=== PATIENT | male | born 1980 | race African-American/Black ===

== ENCOUNTER 2018-04-17 12:08 | Emergency (ER) | payer OTHER ==
[2018-04-17 12:37] VITALS: BP 123/67; PULSE 83; TEMP 98.2; BMI 33.5
--- NOTE | 2018-04-17 12:54 | PDOC ---
Attending Attestation - HPI HPI: 04/17/18 14:22 The patient is a 37 year old male who presents to the ED today with an injury to the left lower extremity. He reports that he was playing basketball with friends last Saturday and went to "leap for the ball" when he had sudden pain in his left posterior calf. He denies any audible pop, snap, or other feeling associated with the injury. He has been able to walk with some pain. The patient states he has been using acetaminophen and ibuprofen with some improvement of his pain. He has also tried applying ice and heat with mild relief. He denies numbness or tingling. - Physicial Exam PE: 04/17/18 14:23 GENERAL: Awake, alert, and fully oriented, in no acute distress HEAD: No signs of trauma EYES: PERRLA, EOMI, sclera anicteric, conjunctiva clear ENT: Auricles normal inspection, hearing grossly normal, nares patent, oropharynx clear without exudates. Moist mucosa NECK: Normal ROM, supple, no lymphadenopathy, JVD, or masses LUNGS: Breath sounds equal, clear to auscultation bilaterally. No wheezes, and no crackles HEART: Regular rate and rhythm, normal S1 and S2, no murmurs, rubs or gallops ABDOMEN: Soft, nontender, normoactive bowel sounds. No guarding, no rebound. No masses EXTREMITIES: (+) LLE is visibly edematous distal to L knee. Tender posteriorly. Calf tight but not firm. increased pain with L knee flexion. Normal range of motion,No clubbing or cyanosis. No cords, erythema. NEUROLOGICAL: Cranial nerves II through XII grossly intact. Normal speech, normal gait SKIN: Warm, Dry, normal turgor, no rashes or lesions noted. - Medical Decision Making 04/17/18 14:23 Documentation prepared by Therese Velazquez, acting as biomedical engineer for Malia Lucas MD <Therese Velazquez - Last Filed: 04/17/18 14:24> - Medical Decision Making 04/19/18 18:15 PT presents to the ED complaining of unilateral lower extremity pain and swelling. Concern for DVT. Duplex is negative for DVT. No signs of tendon rupture. Will treat with NSAIDS and discharge home. <Malia Lucas - Last Filed: 04/19/18 18:17>
[2018-04-17] MEDS ORDERED: IBUPROFEN 400 MG TABLET (FP) PO ONE ×2 (13:09→14:05)
--- NOTE | 2018-04-17 13:13 | PDOC ---
History of Present Illness - General Chief Complaint: Injury Stated Complaint: INJURY Time Seen by Provider: 04/17/18 12:54 - History of Present Illness Initial Comments: Megha Villanueva is a 37yo man who presents to the ED today with an injury to the left lower extremity. He reports that he was playing basketball with friends last Saturday and went to "leap for the ball" when he had sudden pain in his left posterior calf. He denies any pop, snap, or other feeling associated with the injury. He has been able to walk, though with pain, since the injury. Mr Villanueva was trying to care for his injury at home for the past week. He has been using pain medications such as acetaminophen and ibuprofen with some improvement. He has also tried applying ice and heat. He does note that the pain lessens somewhat when the ice or heat is in place, but he feels an increased throbbing in his leg afterwards. Mr Villanueva states that he has been able to walk, including up on his toes, though this increases his calf pain as well. He feels that his strength and movement are intact. He also denies any neurological symptoms such as numbness, tingling, foot drop and has not noticed any change in color or temperature. He has the most pain when flexing at the knee. Mr Villanueva has not had any other recent injury and denies injury to any other part of his body. He has not traveled recently, has not had any surgeries, and has not been immobilized. 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 He also reports current smoking, now down to usually 1-2 cigarettes per day, though he used to smoke up to half a pack. Mr Villanueva denies any other current symptoms, chronic illness, prior hospitalizations, or medication use at home. Past History - Past Medical History Allergies/Adverse Reactions: Allergies Allergy/AdvReac Type Severity Reaction Status Date / Time No Known Allergies Allergy Verified 04/17/18 12:32 COPD: No - Immunization History Immunization Up to Date: Yes - Suicide/Smoking/Psychosocial Hx Smoking History: Never smoked Number of Cigarettes Smoked Daily: 5 Information on smoking cessation initiated: No Hx Alcohol Use: No Drug/Substance Use Hx: No Substance Use Type: None Review of Systems - Review of Systems Comments:: General: No fevers, no chills, no weight or appetite change, no malaise HEENT: No changes in vision, no changes in hearing, no congestion, no sore throat CV: No chest pain, no palpitations, no LE edema Pulm: No SOB, no cough, no wheezing GI: No nausea or vomiting, no change in bowel habits, no melena : No frequency, no urgency, no dysuria Musc: See HPI Skin: No rash, no lesions, no erythema Endo: No excessive thirst, no heat/cold intolerance Heme: No unusual bruising or bleeding, no swollen glands Neuro: No syncope, no numbness/tingling, no focal weakness Vasc: No claudication Psych: No recent change in mood, no SI or HI *Physical Exam - Vital Signs Last Vital Signs Temp Pulse Resp BP Pulse Ox 98.2 F 83 16 123/67 98 04/17/18 12:33 04/17/18 12:33 04/17/18 12:33 04/17/18 12:33 04/17/18 12:33 - Physical Exam Comments: General: Comfortable, no acute distress HEENT: PERRL, EOMI, MMM, voice normal, normal neck ROM, no LAD Cards: RRR, no murmur appreciated Pulm: Comfortable on room air, clear to auscultation bilaterally Abd: Soft, nontender, nondistended Ext: LLE visibly swollen distal to knee. Tender posteriorly. Calf tight but not firm. ROM intact; increased pain with knee flexion. Able to bear weight on L foot, heel, and toes. Sensation to light touch intact on dorsal and plantar surfaces of toes. Strength 5/5 and equal to RLE Vasc: Extremities WWP. Palpable radial bilaterally. Palpable RLE pedal pulses, LLE not palpable 2/2 swelling but capillary refill < 2sec Skin: Normal color, no rashes or lesions Neuro: A&Ox3, CN grossly intact, normal speech, motor/sensory grossly intact and symmetric Psych: Mood appropriate to situation Moderate Sedation - Procedure Monitoring Vital Signs: Procedure Monitoring Vital Signs Temperature 98.2 F 04/17/18 12:33 Pulse Rate 83 04/17/18 12:33 Respiratory Rate 16 04/17/18 12:33 Blood Pressure 123/67 04/17/18 12:33 O2 Sat by Pulse Oximetry (%) 98 04/17/18 12:33 ED Treatment Course - RADIOLOGY Radiology Studies Ordered: Category Date Time Status DUPLEX VASCUL US-1 LEG [US] Stat Ultrasound 04/17/18 13:09 Ordered Medical Decision Making - Medical Decision Making 04/17/18 13:10 Megha Villanueva is an otherwise healthy 37yo man who presents with an injury to the LLE that occurred last Saturday while playing basketball. - Painful and swollen. 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 Duplex ordered to r/o DVT - No concern for neurovascular compromise; intact on exam - ROM somewhat limited by pain, but able to ambulate and toe walk for short periods. Strength appears intact - 800mg ibuprofen for pain control 04/17/18 14:57 - Duplex negative. No fluid collection or vascular compromise - Most likely mild soft tissue injury or muscle strain causing local inflammation - Discussed with Mr Villanueva - Plan to discharge home. Discussed use of NSAIDs, ice, elevation, light compression as tolerated. He states understanding - Mr Villanueva has an appointment with Dr Baptiste scheduled for tomorrow afternoon. Recommend follow-up, may defer appointment to Saturday - Recommend taking off work driving this afternoon and tomorrow to allow his injury to heal. Discussed with Dr Lucas. Josie Turner PGY1 *DC/Admit/Observation/Transfer Diagnosis at time of Disposition: Pain and swelling of lower leg Qualifiers: Laterality: left Qualified Code(s): M79.662 - Pain in left lower leg; M79.89 - Other specified soft tissue disorders - Discharge Dispostion Disposition: HOME Condition at time of disposition: Stable Decision to Admit order: No - Referrals Referrals: Kacie Baptiste MD [Primary Care Provider] - - Patient Instructions Printed Discharge Instructions: DI for Leg Pain Additional Instructions: Discharge Instructions: You were seen in the emergency department for pain and swelling to your left leg following an injury. You had an ultrasound to check for blood vessel injury or blockage, and the ultrasound was normal. Because you are able to walk, it is very unlikely that you have a bone injury or fracture. Home Care: - Apply ice for 20 minutes per hour - Elevate your leg, ideally above the level of your heart, as much as possible - Use NSAIDs such as ibuprofen (Motrin, Advil) or naproxen (Aleve). You may take 600-800mg ibuprofen (3-4 tablets) every 6 hours OR naproxen 2 tablets every 12 hours for the next 4-5 days. If your symptoms do not improve by that time, make sure you see your primary physician. Choose one medication to take - either ibuprofen or naproxen - and take only that medication. Do not switch off. Take the medication with food to prevent upset stomach - You may use light compression with an MILADY wrap on your lower leg if it is comfortable to do so. You should be able to get 2 fingers easily under the wrap. Follow Up: - See your regular doctor within the next 3-4 days for follow up - Seek immediate medical care if your leg becomes so swollen it feels hard, if your foot or leg become cold or pale, if your foot or leg becomes numb or has tingling (feels like it's falling asleep), or if you have worsening of the leg pain along with any of these symptoms. - Post Discharge Activity
== END 2018-04-17 15:23 | disposition home or self-care (01) ==
LOC: JER 12:08
DX: S89.82XA Other specified injuries of left lower leg, initial encounter (principal); X50.9XXA Other and unspecified overexertion or strenuous movements or postures, initial encounter; Y93.67 Activity, basketball; Y92.310 Basketball court as the place of occurrence of the external cause; Y99.8 Other external cause status
CPT/HCPCS: 93971-TC; 99282-25